=== PATIENT | female | born 1985 | race Asian ===

== ENCOUNTER 2016-08-30 19:38 | Emergency (ER) | payer OTHER ==
[2016-08-30] MEDS ORDERED: ASPIRIN 325 MG TAB As Ordered ONE (20:42)
[2016-08-30 20:50] LABS: BASO % 0.5 % (0.0-1.0); EOS # 0.1 K/mm3 (0.0-0.50); LARGE UNSTAINED CELL # 0.2 K/mm3 (0.0-0.4); LARGE UNSTAINED CELL % 2.6 % (0.0-4.0); LYMPH # 2.7 K/mm3 (1.5-4.5); LYMPH % 40.2 % (24.0-44.0); MEAN CORPUSCULAR HEMOGLOBIN 29.7 pg (27.0-33.0); MEAN CORPUSCULAR HGB CONC 33.2 g/dl (32.0-36.5); MEAN CORPUSCULAR VOLUME 89.7 fl (80.0-96.0); MONO # 0.3 K/mm3 (0.0-0.8); MONO % 4.3 % (0.0-5.0); NEUTROPHILS # 3.4 K/mm3 (1.8-7.7); NEUTROPHILS % 51.5 % (36.0-66.0); PLATELET COUNT, AUTOMATED 278 k/mm3 (150-450); RED CELL DISTRIBUTION WIDTH 12.9 % (11.5-14.5); WHITE BLOOD COUNT 6.6 K/mm3 (4.0-10.0)
[2016-08-30 21:15] LABS: ANION GAP 9 MEQ/L (8-16); BLOOD UREA NITROGEN 9 MG/DL (7-18); CALCIUM LEVEL 8.6 MG/DL (8.5-10.1); CARBON DIOXIDE LEVEL 25 MEQ/L (21-32); CHLORIDE LEVEL 108 MEQ/L (98-107); CREATININE FOR GFR 0.94 MG/DL (0.55-1.02); GLOMERULAR FILTRATION RATE > 60.0 (>60); GLUCOSE, FASTING 136 MG/DL (70-105); POTASSIUM SERUM 3.8 MEQ/L (3.5-5.1); SODIUM LEVEL 142 MEQ/L (136-145)
--- NOTE | 2016-08-30 22:10 | EDDOCDS ---
Physician Documentation [facility] Name: Tawanna Shaw Age: 30 yrs Sex: Female : 1985 Arrival Date: 08/30/2016 Time: 19:38 Bed 12 Private MD: Other - Complete Info On Cds Disposition: 08/30/16 21:45 Discharged to Home/Self Care. Impression: Chest pain, unspecified. - Condition is Stable. - Discharge Instructions: Nonspecific Chest Pain. - Medication Reconciliation, Local Pharmacy Hours form. - Follow up: TAMICA Pena; When: 1 - 2 days; Reason: Recheck today's complaints. - Problem is new. - Symptoms have improved. - Notes: You were seen in the ED for chest pain. Bloodwork along with EKG of the heart, chest Xray and cardiac monitoring showed no acute findings. It is possible the pain is due to pain in the wall of the chest itself. As you are feeling better you may return home to follow up with your primary doctor - please call in the morning to arrange to be seen. Return to the ED for any worsening pain, trouble breathing, lightheadedness, loss of consciousness or any other concerns. Historical: - Allergies: no known allergies; - Home Meds: 1. Tylenol 325 mg Oral tab 2 tabs every 4 hours (Last dose: 08/30/2016 11:00) 2. Lutera (28) 0.1-20 mg-mcg oral tab 1 tab once daily 3. amoxicillin 500 mg Oral tab 1 tab every 12 hours (Last dose: 08/30/2016 19:00) - PMHx: GERD; - PSHx: none; - Social history: Smoking status: Patient states was never smoker of tobacco. No barriers to communication noted, The patient speaks fluent Yi, Speaks appropriately for age. - Family history: Not pertinent. - : The pt / caregiver states he / she is not on anticoagulants. Home medication list is obtained from the patient. - Exposure Risk Screening:: None identified. 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 1 in. (154.94 cm) (R); Pain 5/10; 22:07 BP 113 / 67; Pulse 77; Resp 18; Temp 99.3(O); Pulse Ox 99% on R/A; Pain 6/10; nn1 19:40 Body Mass Index 26.07 (62.60 kg, 154.94 cm) gr2 MDM: 19:54 ECG WITH READING ER PHYS+CARDIAG ordered. EDMS 20:06 [employer]/Pulse Ox/q 30 min VS ordered. br1 20:06 IV Saline Lock ordered. br1 20:06 Rhythm Strip to chart ordered. br1 20:06 Undress patient appropriately for examination ordered. br1 20:07 Basic Metabolic Profile Ordered. EDMS 20:07 CBC with Diff Ordered. EDMS 20:07 Cardiac Injury Profile Ordered. EDMS 20:07 Troponin Ordered. EDMS 20:07 Chest, 2 View (pa\E\lat) Ordered. EDMS 20:30 Aspirin 325 mg PO once ordered. br1 20:30 D-Dimer Quant Ordered. EDMS 21:37 Basic Metabolic Profile Reviewed. br1 21:37 CBC with Diff Reviewed. br1 21:37 Cardiac Injury Profile Reviewed. br1 21:37 Troponin Reviewed. br1 21:37 D-Dimer Quant Reviewed. br1 Administered Medications: 20:46 Drug: Aspirin 325 mg [aspirin 325 mg tablet (1 tabs)] Route: PO; af2 Signatures: Dispatcher [employer] Reece Dewitt RN RN mlb1 Yariel Alejandre MD MD br1 Ashli Guillermo RN RN af2 Amadeo Marie RN RN nn1 MTDD
--- NOTE | 2016-08-30 22:10 | EDDOCDS ---
Nurse's Notes [facility] Name: Tawanna Shaw Age: 30 yrs Sex: Female : 1985 Arrival Date: 08/30/2016 Time: 19:38 Bed 12 Private MD: Other - Complete Info On Cds Diagnosis: Chest pain, unspecified Presentation: 08/30 19:46 Presenting complaint: Patient states: Chest pain headache nausea and fatigue began mlb1 Monday seen at Urgent Care today diagnosed with Strep throat sent here. Aspirin was not taken prior to arrival. Adult Sepsis Screening: The patient does not have new or worsening altered mentation. Patient's respiratory rate is less than 22. Systolic blood pressure is greater than 100. Patient has a qSOFA score of 0- Negative Sepsis Screen. Suicide/Homicide risk assessment- the patient denies having any suicidal and/or homicidal ideations and does not present with any other emotional, behavioral or mental health complaints. Status: The patient is a dependent. Transition of care: patient was not received from another setting of care. 19:46 Acuity: DEVANTE Level 3 mlb1 19:46 Method Of Arrival: Walkin/Carried/Asstd mlb1 Triage Assessment: 19:50 General: Appears in no apparent distress, Behavior is appropriate for age, cooperative. mlb1 Pain: Location: mid-sternal area Pain currently is 7 out of 10 on a pain scale. Pt Declines HIV testing. GI: Reports nausea. 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 Tylenol 325 mg Oral tab 2 tabs every 4 hours (Last dose: 08/30/2016 11:00) 2. Lutera (28) 0.1-20 mg-mcg oral tab 1 tab once daily 3. amoxicillin 500 mg Oral tab 1 tab every 12 hours (Last dose: 08/30/2016 19:00) - PMHx: GERD; - PSHx: none; - Social history: Smoking status: Patient states was never smoker of tobacco. No barriers to communication noted, The patient speaks fluent Pakistani, Speaks appropriately for age. - Family history: Not pertinent. - : The pt / caregiver states he / she is not on anticoagulants. Home medication list is obtained from the patient. - Exposure Risk Screening:: None identified. Screenin:46 Screening information is obtained from the patient. Fall risk: No risks identified. af2 Assistance ADL's: requires no assistance with activities of daily living. Abuse/DV Screen: The patient / caregiver reports he/she is: not in a situation that causes fear, pain or injury. Nutritional screening: No deficits noted. Advance Directives: Currently, there is no health care proxy. home support is adequate. Assessment: 20:47 General: Appears in no apparent distress, Behavior is cooperative. Neurological: Level af2 of Consciousness is awake, alert, obeys commands, Oriented to person, place, time. Cardiovascular: Heart tones S1 S2 present Rhythm is sinus rhythm No ectopy. Respiratory: Airway is patent Respiratory effort is even, unlabored, Respiratory pattern is regular, symmetrical, Breath sounds are clear bilaterally. Derm: Skin is normal. 22:07 General: Appears in no apparent distress, comfortable, Behavior is appropriate for age, nn1 cooperative. Pain: Location: chest Pain currently is 6 out of 10 on a pain scale. Neurological: Level of Consciousness is awake, alert, obeys commands, Oriented to person, place, time. Cardiovascular: Rhythm is sinus rhythm No ectopy. Respiratory: Airway is patent Respiratory effort is even, unlabored, Respiratory pattern is regular, symmetrical. Derm: Skin is normal. Vital Signs: 19:40 BP 111 / 76; Pulse 91; Resp 18 S; Temp 98.9(O); Pulse Ox 100% on R/A; Weight 62.6 kg gr2 (R); Height 5 ft. 1 in. (154.94 cm) (R); Pain 5/10; 22:07 BP 113 / 67; Pulse 77; Resp 18; Temp 99.3(O); Pulse Ox 99% on R/A; Pain 6/10; nn1 19:40 Body Mass Index 26.07 (62.60 kg, 154.94 cm) gr2 Vitals: 19:40 Log In Time: August 30, 2016 at 19:40. gr2 ED Course: 19:40 Patient visited by Lesley Post. gr2 19:40 Other - Complete Info On Cds is Private Physician. gr2 19:40 Patient moved to Waiting gr2 19:42 Patient visited by Lesley Post. gr2 19:42 Patient moved to Pre RCE gr2 19:46 Patient visited by Reece Crespo RN. mlb1 19:48 Triage Initiated mlb1 19:51 Patient visited by Reece Crespo RN. mlb1 19:54 Patient moved to PR mlb1 20:04 Yariel Alejandre MD is Attending Physician. br1 20:04 Tatiana Finley,RN is Primary Nurse. br1 20:04 Patient moved to 12 br1 20:26 Patient visited by Yariel Alejandre MD. br1 20:40 D-Dimer Quant Sent. af2 20:40 Basic Metabolic Profile Sent. af2 20:40 CBC with Diff Sent. af2 20:41 Cardiac Injury Profile Sent. af2 20:41 Troponin Sent. af2 20:42 Patient moved to Radiology licha 20:46 Inserted saline lock: 20 gauge in right antecubital area and blood collected. The af2 patient tolerated the procedure well. 20:46 No procedures done that require assistance. af2 20:47 Patient visited by Ashli Guillermo RN. af2 20:48 Patient moved to 12 af2 21:40 Patient visited by Yariel Alejandre MD. br1 21:45 Becky [facility] is Referral Physician. br1 22:08 The patient / caregiver is instructed regarding the plan of care and ED course. Cardiac nn1 monitor on. Pulse ox on. NIBP on. Administered Medications: 20:46 Drug: Aspirin 325 mg [aspirin 325 mg tablet (1 tabs)] Route: PO; af2 Order Results: Lab Order: Basic Metabolic Profile; SPEC'M 08/30/16 20:39 Test: GLUCOSE, FASTING; Value: 136; Range: 70-105; Abnormal: Above high normal; Units: MG/DL; Status: F Test: BLOOD UREA NITROGEN; Value: 9; Range: 7-18; Units: MG/DL; Status: F Test: CREATININE FOR GFR; Value: 0.94; Range: 0.55-1.02; Units: MG/DL; Status: F Test: GLOMERULAR FILTRATION RATE; Value: > 60.0; Range: >60; Status: F Test: SODIUM LEVEL; Value: 142; Range: 136-145; Units: MEQ/L; Status: F Test: POTASSIUM SERUM; Value: 3.8; Range: 3.5-5.1; Units: MEQ/L; Status: F Test: CHLORIDE LEVEL; Value: 108; Range: 98-107; Abnormal: Above high normal; Units: MEQ/L; Status: F Test: CARBON DIOXIDE LEVEL; Value: 25; Range: 21-32; Units: MEQ/L; Status: F Test: ANION GAP; Value: 9; Range: 8-16; Units: MEQ/L; Status: F Test: CALCIUM LEVEL; Value: 8.6; Range: 8.5-10.1; Units: MG/DL; Status: F Test Note: ; Units are mL/min/1.73 m2 Chronic Kidney Disease Staging per NKF: Stage I & II GFR >=60 Normal to Mildly Decreased Stage III GFR 30-59 Moderately Decreased Stage IV GFR 15-29 Severely Decreased Stage V GFR <15 Very Little GFR Left ESRD GFR <15 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 Lab Order: CBC with Diff; SPEC'M 08/30/16 20:39 Test: WHITE BLOOD COUNT; Value: 6.6; Range: 4.0-10.0; Units: K/mm3; Status: F Test: RED BLOOD COUNT; Value: 4.31; Range: 4.00-5.40; Units: M/mm3; Status: F Test: HEMOGLOBIN; Value: 12.8; Range: 12.0-16.0; Units: g/dl; Status: F Test: HEMATOCRIT; Value: 38.7; Range: 36.0-47.0; Units: %; Status: F Test: MEAN CORPUSCULAR VOLUME; Value: 89.7; Range: 80.0-96.0; Units: fl; Status: F Test: MEAN CORPUSCULAR HEMOGLOBIN; Value: 29.7; Range: 27.0-33.0; Units: pg; Status: F Test: MEAN CORPUSCULAR HGB CONC; Value: 33.2; Range: 32.0-36.5; Units: g/dl; Status: F Test: RED CELL DISTRIBUTION WIDTH; Value: 12.9; Range: 11.5-14.5; Units: %; Status: F Test: PLATELET COUNT, AUTOMATED; Value: 278; Range: 150-450; Units: k/mm3; Status: F Test: NEUTROPHILS %; Value: 51.5; Range: 36.0-66.0; Units: %; Status: F Test: LYMPH %; Value: 40.2; Range: 24.0-44.0; Units: %; Status: F Test: MONO %; Value: 4.3; Range: 0.0-5.0; Units: %; Status: F Test: EOS %; Value: 1.0; Range: 0.0-3.0; Units: %; Status: F Test: BASO %; Value: 0.5; Range: 0.0-1.0; Units: %; Status: F Test: LARGE UNSTAINED CELL %; Value: 2.6; Range: 0.0-4.0; Units: %; Status: F Test: NEUTROPHILS #; Value: 3.4; Range: 1.8-7.7; Units: K/mm3; Status: F Test: LYMPH #; Value: 2.7; Range: 1.5-4.5; Units: K/mm3; Status: F Test: MONO #; Value: 0.3; Range: 0.0-0.8; Units: K/mm3; Status: F Test: EOS #; Value: 0.1; Range: 0.0-0.50; Units: K/mm3; Status: F Test: BASO #; Value: 0.0; Range: 0.0-0.2; Units: K/mm3; Status: F Test: LARGE UNSTAINED CELL #; Value: 0.2; Range: 0.0-0.4; Units: K/mm3; Status: F Lab Order: Cardiac Injury Profile; SPEC'M 08/30/16 20:39 Test: CPK CREATINE PHOSPHOKINASE; Value: 104; Range: 26-192; Units: U/L; Status: F Test: CK-MB VALUE MASS; Value: 1.0; Range: 0.0-3.6; Units: NG/ML; Status: F Test: MB/CK RELATIVE INDEX; Value: 0.96; Range: < OR =4; Status: F Test Note: ; DIAGNOSIS CRITERIA MMB ng/ml Relative Index (RI) NON-AMI < or = 5 N/A RIOS ZONE > 5 < or = 4 AMI > 5 > 4 Lab Order: Troponin; SPEC'M 08/30/16 20:39 Test: TROPONIN I; Value: < 0.02; Range: < 0.10; Units: NG/ML; Status: F Test Note: ; Troponin I Reference Interval for Siemens [place] LOCI: 99th Percentile= 0.00-0.045 ng/ml Risk Stratification: <= 0.10 ng/ml Decreased Risk for Adverse Clinical Events. 0.10-1.50 ng/ml Increased Risk for Adverse Clinical Events. Evaluation of additional criterion and/or repeat testing in 2-6 hours is suggested to rule out myocardial damage. >= 1.50 ng/ml Indicative of Myocardial Injury. Lab Order: D-Dimer Quant; SPEC'M 08/30/16 20:39 Test: D-DIMER QUANT; Value: 463.4; Range: <500; Units: ng/ml; Status: F Outcome: 21:45 Discharge ordered by Provider. br1 22:08 Discharge Assessment: Patient awake, alert and oriented x 3. No cognitive and/or nn1 functional deficits noted. Patient verbalized understanding of disposition instructions. patient administered narcotics - no. The following High Risk Discharge criteria are identified: None. Discharged to home ambulatory, with significant other. Condition: stable Condition: improved. No special radiology studies were completed. Property :Personal belongings accompany Pt. 22:09 Patient left the ED. nn1 Signatures: Landon Tran Michael B RN RN mlb1 Yariel Alejandre MD MD br1 Lesley Post gr2 Ashli Guillermo,ARIANE RN af2 Amadeo Marie RN RN nn1 MTDD
--- NOTE | 2016-08-31 07:55 | REP ---
Clinical: Chest pain . Comparison: In 08/05/2015 . Technique: PA and lateral. Findings: The mediastinum and cardiac silhouette are normal. The lung goncalves are clear and without acute consolidation, effusion, or pneumothorax. The skeletal structures are intact and normal. Impression: 1. No acute cardiopulmonary process. Signed by Mahendra Alatorre MD 08/31/2016 07:46 A
--- NOTE | 2016-08-31 10:03 | ECGEPIP ---
Stationary ECG Study [facility] - ED Test Date: 2016-08-30 Pat Name: MARIA ELENA SUN Department: Room: - Gender: F Pc Technician: : 1985 Requested By: LESLIE Paez Order Number: [id number] Reading MD: Basia Nguyen Measurements Intervals [place] Rate: 96 P: 66 MT: 141 QRS: 73 QRSD: 77 T: 49 QT: 361 QTc: 458 Interpretive Statements SINUS RHYTHM NO PRIOR FOR COMPARISON Electronically Signed On 08-31-2016 10:02:43 EST by Basia Nguyen
--- NOTE | 2016-09-01 23:10 | EDDOCDS ---
Physician Documentation [facility] Name: Tawanna Shaw Age: 30 yrs Sex: Female : 1985 Arrival Date: 08/30/2016 Time: 19:38 Bed 12 Private MD: Other - Complete Info On Cds Disposition: 08/30/16 21:45 Discharged to Home/Self Care. Impression: Chest pain, unspecified. - Condition is Stable. - Discharge Instructions: Nonspecific Chest Pain. - Medication Reconciliation, Local Pharmacy Hours form. - Follow up: TAMICA Pena; When: 1 - 2 days; Reason: Recheck today's complaints. - Problem is new. - Symptoms have improved. - Notes: You were seen in the ED for chest pain. Bloodwork along with EKG of the heart, chest Xray and cardiac monitoring showed no acute findings. It is possible the pain is due to pain in the wall of the chest itself. As you are feeling better you may return home to follow up with your primary doctor - please call in the morning to arrange to be seen. Return to the ED for any worsening pain, trouble breathing, lightheadedness, loss of consciousness or any other concerns. Historical: - Allergies: no known allergies; - Home Meds: 1. Tylenol 325 mg Oral tab 2 tabs every 4 hours (Last dose: 08/30/2016 11:00) 2. Lutera (28) 0.1-20 mg-mcg oral tab 1 tab once daily 3. amoxicillin 500 mg Oral tab 1 tab every 12 hours (Last dose: 08/30/2016 19:00) - PMHx: GERD; - PSHx: none; - Social history: Smoking status: Patient states was never smoker of tobacco. No barriers to communication noted, The patient speaks fluent Romansh, Speaks appropriately for age. - Family history: Not pertinent. - : The pt / caregiver states he / she is not on anticoagulants. Home medication list is obtained from the patient. - Exposure Risk Screening:: None identified. 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 1 in. (154.94 cm) (R); Pain 5/10; 22:07 BP 113 / 67; Pulse 77; Resp 18; Temp 99.3(O); Pulse Ox 99% on R/A; Pain 6/10; nn1 19:40 Body Mass Index 26.07 (62.60 kg, 154.94 cm) gr2 MDM: 19:54 ECG WITH READING ER PHYS+CARDIAG ordered. EDMS 20:06 [employer]/Pulse Ox/q 30 min VS ordered. br1 20:06 IV Saline Lock ordered. br1 20:06 Rhythm Strip to chart ordered. br1 20:06 Undress patient appropriately for examination ordered. br1 20:07 Basic Metabolic Profile Ordered. EDMS 20:07 CBC with Diff Ordered. EDMS 20:07 Cardiac Injury Profile Ordered. EDMS 20:07 Troponin Ordered. EDMS 20:07 Chest, 2 View (pa\E\lat) Ordered. EDMS 20:30 Aspirin 325 mg PO once ordered. br1 20:30 D-Dimer Quant Ordered. EDMS 21:37 Basic Metabolic Profile Reviewed. br1 21:37 CBC with Diff Reviewed. br1 21:37 Cardiac Injury Profile Reviewed. br1 21:37 Troponin Reviewed. br1 21:37 D-Dimer Quant Reviewed. br1 22:11 [facility] Payment Agreement was scanned into [employer] and attached to record. [facility] 22:11 Financial registration complete. [facility] 08/31 11:20 T-Sheet-- Draft Copy was scanned into [employer] and attached to record. 11:20 ECG/EKG was scanned into [employer] and attached to record. gb Administered Medications: 08/30 20:46 Drug: Aspirin 325 mg [aspirin 325 mg tablet (1 tabs)] Route: PO; af2 Signatures: Dispatcher [employer] EDMS Lisa Sethi, Reg Reg gb Reece Crespo RN RN mlb1 Yariel Alejandre MD MD br1 Ashli GuillermoRN RN af2 Amadeo MarieRN RN nn1 Tawanna Pizano, Reg Reg [id number] The chart was reviewed and I authenticate all verbal orders and agree with the evaluation and treatment provided.Attachments: 22:11 [facility] Payment Agreement [facility] 08/31 11:20 T-Sheet-- Draft Copy gb 11:20 ECG/EKG gb Chart Complete MTDD
--- NOTE | 2016-09-01 23:10 | EDDOCDS ---
Physician Documentation [facility] Name: Tawanna Shaw Age: 30 yrs Sex: Female : 1985 Arrival Date: 08/30/2016 Time: 19:38 Bed 12 Private MD: Other - Complete Info On Cds Disposition: 08/30/16 21:45 Discharged to Home/Self Care. Impression: Chest pain, unspecified. - Condition is Stable. - Discharge Instructions: Nonspecific Chest Pain. - Medication Reconciliation, Local Pharmacy Hours form. - Follow up: TAMICA Pena; When: 1 - 2 days; Reason: Recheck today's complaints. - Problem is new. - Symptoms have improved. - Notes: You were seen in the ED for chest pain. Bloodwork along with EKG of the heart, chest Xray and cardiac monitoring showed no acute findings. It is possible the pain is due to pain in the wall of the chest itself. As you are feeling better you may return home to follow up with your primary doctor - please call in the morning to arrange to be seen. Return to the ED for any worsening pain, trouble breathing, lightheadedness, loss of consciousness or any other concerns. Historical: - Allergies: no known allergies; - Home Meds: 1. Tylenol 325 mg Oral tab 2 tabs every 4 hours (Last dose: 08/30/2016 11:00) 2. Lutera (28) 0.1-20 mg-mcg oral tab 1 tab once daily 3. amoxicillin 500 mg Oral tab 1 tab every 12 hours (Last dose: 08/30/2016 19:00) - PMHx: GERD; - PSHx: none; - Social history: Smoking status: Patient states was never smoker of tobacco. No barriers to communication noted, The patient speaks fluent Azeri, Speaks appropriately for age. - Family history: Not pertinent. - : The pt / caregiver states he / she is not on anticoagulants. Home medication list is obtained from the patient. - Exposure Risk Screening:: None identified. 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 1 in. (154.94 cm) (R); Pain 5/10; 22:07 BP 113 / 67; Pulse 77; Resp 18; Temp 99.3(O); Pulse Ox 99% on R/A; Pain 6/10; nn1 19:40 Body Mass Index 26.07 (62.60 kg, 154.94 cm) gr2 MDM: 19:54 ECG WITH READING ER PHYS+CARDIAG ordered. 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 br1 20:06 IV Saline Lock ordered. br1 20:06 Rhythm Strip to chart ordered. br1 20:06 Undress patient appropriately for examination ordered. br1 20:07 Basic Metabolic Profile Ordered. EDMS 20:07 CBC with Diff Ordered. EDMS 20:07 Cardiac Injury Profile Ordered. EDMS 20:07 Troponin Ordered. EDMS 20:07 Chest, 2 View (pa\E\lat) Ordered. EDMS 20:30 Aspirin 325 mg PO once ordered. br1 20:30 D-Dimer Quant Ordered. EDMS 21:37 Basic Metabolic Profile Reviewed. br1 21:37 CBC with Diff Reviewed. br1 21:37 Cardiac Injury Profile Reviewed. br1 21:37 Troponin Reviewed. br1 21:37 D-Dimer Quant Reviewed. br1 22:11 [facility] Payment Agreement was scanned into [employer] and attached to record. [facility] 22:11 Financial registration complete. [facility] 08/31 11:20 T-Sheet-- Draft Copy was scanned into [employer] and attached to record. 11:20 ECG/EKG was scanned into [employer] and attached to record. gb Administered Medications: 08/30 20:46 Drug: Aspirin 325 mg [aspirin 325 mg tablet (1 tabs)] Route: PO; af2 Signatures: Dispatcher [employer] EDMS Lisa Sethi, Reg Reg gb Reece Crespo RN RN mlb1 Yariel Alejandre MD MD br1 Ashli GuillermoRN RN af2 Amadeo MarieRN RN nn1 Tawanna Pizano, Reg Reg [id number] The chart was reviewed and I authenticate all verbal orders and agree with the evaluation and treatment provided.Attachments: 22:11 [facility] Payment Agreement [facility] 08/31 11:20 T-Sheet-- Draft Copy gb 11:20 ECG/EKG gb Chart Complete MTDD
--- NOTE | 2016-09-01 23:11 | EDDOCDS ---
Nurse's Notes [facility] Name: Maria Elena Sun Age: 30 yrs Sex: Female : 1985 Arrival Date: 08/30/2016 Time: 19:38 Bed 12 Private MD: Other - Complete Info On Cds Diagnosis: Chest pain, unspecified Presentation: 08/30 19:46 Presenting complaint: Patient states: Chest pain headache nausea and fatigue began mlb1 Monday seen at Urgent Care today diagnosed with Strep throat sent here. Aspirin was not taken prior to arrival. Adult Sepsis Screening: The patient does not have new or worsening altered mentation. Patient's respiratory rate is less than 22. Systolic blood pressure is greater than 100. Patient has a qSOFA score of 0- Negative Sepsis Screen. Suicide/Homicide risk assessment- the patient denies having any suicidal and/or homicidal ideations and does not present with any other emotional, behavioral or mental health complaints. Status: The patient is a dependent. Transition of care: patient was not received from another setting of care. 19:46 Acuity: DEVANTE Level 3 mlb1 19:46 Method Of Arrival: Walkin/Carried/Asstd mlb1 Triage Assessment: 19:50 General: Appears in no apparent distress, Behavior is appropriate for age, cooperative. mlb1 Pain: Location: mid-sternal area Pain currently is 7 out of 10 on a pain scale. Pt Declines HIV testing. GI: Reports nausea. 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 Tylenol 325 mg Oral tab 2 tabs every 4 hours (Last dose: 08/30/2016 11:00) 2. Lutera (28) 0.1-20 mg-mcg oral tab 1 tab once daily 3. amoxicillin 500 mg Oral tab 1 tab every 12 hours (Last dose: 08/30/2016 19:00) - PMHx: GERD; - PSHx: none; - Social history: Smoking status: Patient states was never smoker of tobacco. No barriers to communication noted, The patient speaks fluent Sudanese, Speaks appropriately for age. - Family history: Not pertinent. - : The pt / caregiver states he / she is not on anticoagulants. Home medication list is obtained from the patient. - Exposure Risk Screening:: None identified. Screenin:46 Screening information is obtained from the patient. Fall risk: No risks identified. af2 Assistance ADL's: requires no assistance with activities of daily living. Abuse/DV Screen: The patient / caregiver reports he/she is: not in a situation that causes fear, pain or injury. Nutritional screening: No deficits noted. Advance Directives: Currently, there is no health care proxy. home support is adequate. Assessment: 20:47 General: Appears in no apparent distress, Behavior is cooperative. Neurological: Level af2 of Consciousness is awake, alert, obeys commands, Oriented to person, place, time. Cardiovascular: Heart tones S1 S2 present Rhythm is sinus rhythm No ectopy. Respiratory: Airway is patent Respiratory effort is even, unlabored, Respiratory pattern is regular, symmetrical, Breath sounds are clear bilaterally. Derm: Skin is normal. 22:07 General: Appears in no apparent distress, comfortable, Behavior is appropriate for age, nn1 cooperative. Pain: Location: chest Pain currently is 6 out of 10 on a pain scale. Neurological: Level of Consciousness is awake, alert, obeys commands, Oriented to person, place, time. Cardiovascular: Rhythm is sinus rhythm No ectopy. Respiratory: Airway is patent Respiratory effort is even, unlabored, Respiratory pattern is regular, symmetrical. Derm: Skin is normal. Vital Signs: 19:40 BP 111 / 76; Pulse 91; Resp 18 S; Temp 98.9(O); Pulse Ox 100% on R/A; Weight 62.6 kg gr2 (R); Height 5 ft. 1 in. (154.94 cm) (R); Pain 5/10; 22:07 BP 113 / 67; Pulse 77; Resp 18; Temp 99.3(O); Pulse Ox 99% on R/A; Pain 6/10; nn1 19:40 Body Mass Index 26.07 (62.60 kg, 154.94 cm) gr2 Vitals: 19:40 Log In Time: August 30, 2016 at 19:40. gr2 ED Course: 19:40 Patient visited by Lesley Post. gr2 19:40 Other - Complete Info On Cds is Private Physician. gr2 19:40 Patient moved to Waiting gr2 19:42 Patient visited by Lesley Post. gr2 19:42 Patient moved to Pre RCE gr2 19:46 Patient visited by Reece Crespo, ARIANE. mlb1 19:48 Triage Initiated mlb1 19:51 Patient visited by Reece Crespo, ARIANE. mlb1 19:54 Patient moved to PR mlb1 20:04 Yariel Alejandre MD is Attending Physician. br1 20:04 Tatiana Finley,RN is Primary Nurse. br1 20:04 Patient moved to 12 br1 20:26 Patient visited by Yariel Alejandre MD. br1 20:40 D-Dimer Quant Sent. af2 20:40 Basic Metabolic Profile Sent. af2 20:40 CBC with Diff Sent. af2 20:41 Cardiac Injury Profile Sent. af2 20:41 Troponin Sent. af2 20:42 Patient moved to Radiology licha 20:46 Inserted saline lock: 20 gauge in right antecubital area and blood collected. The af2 patient tolerated the procedure well. 20:46 No procedures done that require assistance. af2 20:47 Patient visited by Ashli Guillermo RN. af2 20:48 Patient moved to 12 af2 21:40 Patient visited by Yariel Alejandre MD. br1 21:45 Becky [facility] is Referral Physician. br1 22:08 The patient / caregiver is instructed regarding the plan of care and ED course. Cardiac nn1 monitor on. Pulse ox on. NIBP on. 22:11 [facility] Payment Agreement was scanned into [employer] and attached to record. [id number] 08/31 08:03 Chest, 2 View (pa\E\lat) Returned. EDMS 10:06 EKG-ADULT Returned. EDMS 11:20 T-Sheet-- Draft Copy was scanned into [employer] and attached to record. 11:20 ECG/EKG was scanned into [employer] and attached to record. gb Administered Medications: 08/30 20:46 Drug: Aspirin 325 mg [aspirin 325 mg tablet (1 tabs)] Route: PO; af2 Order Results: Lab Order: Basic Metabolic Profile; SPEC'M 08/30/16 20:39 Test: GLUCOSE, FASTING; Value: 136; Range: 70-105; Abnormal: Above high normal; Units: MG/DL; Status: F Test: BLOOD UREA NITROGEN; Value: 9; Range: 7-18; Units: MG/DL; Status: F Test: CREATININE FOR GFR; Value: 0.94; Range: 0.55-1.02; Units: MG/DL; Status: F Test: GLOMERULAR FILTRATION RATE; Value: > 60.0; Range: >60; Status: F Test: SODIUM LEVEL; Value: 142; Range: 136-145; Units: MEQ/L; Status: F Test: POTASSIUM SERUM; Value: 3.8; Range: 3.5-5.1; Units: MEQ/L; Status: F Test: CHLORIDE LEVEL; Value: 108; Range: 98-107; Abnormal: Above high normal; Units: MEQ/L; Status: F Test: CARBON DIOXIDE LEVEL; Value: 25; Range: 21-32; Units: MEQ/L; Status: F Test: ANION GAP; Value: 9; Range: 8-16; Units: MEQ/L; Status: F Test: CALCIUM LEVEL; Value: 8.6; Range: 8.5-10.1; Units: MG/DL; Status: F Test Note: ; Units are mL/min/1.73 m2 Chronic Kidney Disease Staging per NKF: Stage I & II GFR >=60 Normal to Mildly Decreased Stage III GFR 30-59 Moderately Decreased Stage IV GFR 15-29 Severely Decreased Stage V GFR <15 Very Little GFR Left ESRD GFR <15 on FILLETER Lab Order: CBC with Diff; SPEC'M 08/30/16 20:39 Test: WHITE BLOOD COUNT; Value: 6.6; Range: 4.0-10.0; Units: K/mm3; Status: F Test: RED BLOOD COUNT; Value: 4.31; Range: 4.00-5.40; Units: M/mm3; Status: F Test: HEMOGLOBIN; Value: 12.8; Range: 12.0-16.0; Units: g/dl; Status: F Test: HEMATOCRIT; Value: 38.7; Range: 36.0-47.0; Units: %; Status: F Test: MEAN CORPUSCULAR VOLUME; Value: 89.7; Range: 80.0-96.0; Units: fl; Status: F Test: MEAN CORPUSCULAR HEMOGLOBIN; Value: 29.7; Range: 27.0-33.0; Units: pg; Status: F Test: MEAN CORPUSCULAR HGB CONC; Value: 33.2; Range: 32.0-36.5; Units: g/dl; Status: F Test: RED CELL DISTRIBUTION WIDTH; Value: 12.9; Range: 11.5-14.5; Units: %; Status: F Test: PLATELET COUNT, AUTOMATED; Value: 278; Range: 150-450; Units: k/mm3; Status: F Test: NEUTROPHILS %; Value: 51.5; Range: 36.0-66.0; Units: %; Status: F Test: LYMPH %; Value: 40.2; Range: 24.0-44.0; Units: %; Status: F Test: MONO %; Value: 4.3; Range: 0.0-5.0; Units: %; Status: F Test: EOS %; Value: 1.0; Range: 0.0-3.0; Units: %; Status: F Test: BASO %; Value: 0.5; Range: 0.0-1.0; Units: %; Status: F Test: LARGE UNSTAINED CELL %; Value: 2.6; Range: 0.0-4.0; Units: %; Status: F Test: NEUTROPHILS #; Value: 3.4; Range: 1.8-7.7; Units: K/mm3; Status: F Test: LYMPH #; Value: 2.7; Range: 1.5-4.5; Units: K/mm3; Status: F Test: MONO #; Value: 0.3; Range: 0.0-0.8; Units: K/mm3; Status: F Test: EOS #; Value: 0.1; Range: 0.0-0.50; Units: K/mm3; Status: F Test: BASO #; Value: 0.0; Range: 0.0-0.2; Units: K/mm3; Status: F Test: LARGE UNSTAINED CELL #; Value: 0.2; Range: 0.0-0.4; Units: K/mm3; Status: F Lab Order: Cardiac Injury Profile; SPEC'M 08/30/16 20:39 Test: CPK CREATINE PHOSPHOKINASE; Value: 104; Range: 26-192; Units: U/L; Status: F Test: CK-MB VALUE MASS; Value: 1.0; Range: 0.0-3.6; Units: NG/ML; Status: F Test: MB/CK RELATIVE INDEX; Value: 0.96; Range: < OR =4; Status: F Test Note: ; DIAGNOSIS CRITERIA MMB ng/ml Relative Index (RI) NON-AMI < or = 5 N/A RIOS ZONE > 5 < or = 4 AMI > 5 > 4 Lab Order: Troponin; SPEC'M 08/30/16 20:39 Test: TROPONIN I; Value: < 0.02; Range: < 0.10; Units: NG/ML; Status: F Test Note: ; Troponin I Reference Interval for Siemens Socratic LOCI: 99th Percentile= 0.00-0.045 ng/ml Risk Stratification: <= 0.10 ng/ml Decreased Risk for Adverse Clinical Events. 0.10-1.50 ng/ml Increased Risk for Adverse Clinical Events. Evaluation of additional criterion and/or repeat testing in 2-6 hours is suggested to rule out myocardial damage. >= 1.50 ng/ml Indicative of Myocardial Injury. 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 The lung goncalves are clear and; without acute consolidation, effusion, or pneumothorax. The skeletal structures; are intact and normal.; ; Impression:; 1. No acute cardiopulmonary process.; ; ; Signed by; Mahendra Alatorre MD 08/31/2016 07:46 A; Outcome: 21:45 Discharge ordered by Provider. br1 22:08 Discharge Assessment: Patient awake, alert and oriented x 3. No cognitive and/or nn1 functional deficits noted. Patient verbalized understanding of disposition instructions. patient administered narcotics - no. The following High Risk Discharge criteria are identified: None. Discharged to home ambulatory, with significant other. Condition: stable Condition: improved. No special radiology studies were completed. Property :Personal belongings accompany Pt. 22:09 Patient left the ED. nn1 Signatures: Dispatcher [employer] EDMS Landon Tran Gloria, Reg Reg gb Reece Crespo RN RN mlb1 Yariel Alejandre MD MD br1 Lesley Post gr2 Ashli Guillermo RN RN af2 Amadeo Marie RN RN nn1 Maria Elena Pizano, Reg Reg [id number] Chart Complete MTDD
== END 2016-08-30 22:09 | disposition home or self-care (01) ==
LOC: M ED 19:38
DX: R07.9 Chest pain, unspecified (principal); K21.9 Gastro-esophageal reflux disease without esophagitis; Z79.899 Other long term (current) drug therapy